=== PATIENT | female | born 1950 | race Caucasian/White ===

== ENCOUNTER 2018-12-17 02:22 | Inpatient (IN) | payer MEDICARE ==
[~2018-12-17] VITALS: Ht 160 cm; Wt 54.9 kg
[2018-12-17] MEDS ORDERED: NITROGLYCERIN OINT 1GM/INCH UDPKT TD ONE (03:00)
[2018-12-17] MEDS ORDERED: ASPIRIN 81MG TABLET PO ONE (03:00)
[2018-12-17 03:15] LABS: BASOPHILS % 0.7 % (0.0-2.0); EOSINOPHILS % 2.1 % (0.0-5.0); HEMATOCRIT. 39.2 % (36.0-48.0); HEMOGLOBIN. 13.5 g/dL (12.0-16.0); MEAN CORPUSCULAR HEMOGLOBIN 30.3 pg (28.0-32.0); MONOCYTES % 7.5 % (2.0-8.0); NEUTROPHILS % 54.7 % (40.0-76.0); PLATELET 241 x1000/uL (130-400); RED BLOOD CELL COUNT 4.45 mill/uL (4.2-5.4); RED CELL DISTRIBUTION WIDTH 13.3 % (11.6-14.6)
[2018-12-17 03:23] LABS: CHLORIDE 109 mEq/L (98-107)
[2018-12-17] MEDS ORDERED: LORAZEPAM 0.5MG TABLET PO PRN (11:00)
[2018-12-17] MEDS ORDERED: NA PHOS,M-B/NA PHOS,DI-BA ENEMA 118ML PR PRN (11:00)
[2018-12-17] MEDS ORDERED: TRAMADOL 50MG TABLET PO PRN (11:00)
[2018-12-17] MEDS ORDERED: CLONIDINE 0.1MG TABLET PO PRN (11:00)
[2018-12-17] MEDS ORDERED: GUAIFENESIN 200MG/10ML SUGAR FREE UDC PO PRN (11:00)
[2018-12-17] MEDS ORDERED: DOCUSATE SODIUM 100MG CAPSULE PO PRN (11:00)
[2018-12-17] MEDS ORDERED: ONDANSETRON HCL 4MG/2ML INJ IV PRN (11:00)
[2018-12-17] MEDS: LOSARTAN POTASSIUM 50 MG TABLET PO SCH (11:00)
[2018-12-17] MEDS ORDERED: MAGNESIUM/ALUMINUM HYDROXIDE/SIMETHICONE 30ML UDC PO PRN (11:00)
[2018-12-17] MEDS ORDERED: IPRATROPIUM/ALBUTEROL 0.5-3(2.5)MG/3ML NEB NEB PRN (11:00)
[2018-12-17] MEDS ORDERED: ACETAMINOPHEN 325MG TABLET PO PRN (11:00)
[2018-12-17] MEDS ORDERED: NITROGLYCERIN 0.4MG TABLET SL SL PRN (11:00)
[2018-12-17] MEDS ORDERED: REGADENOSON 0.4 MG/5 ML IV ONE ×2 (11:30→13:57)
[2018-12-17 12:00] VITALS: BP 119/53
[2018-12-17] MEDS: FAMOTIDINE 20MG TABLET PO SCH (12:00)
[2018-12-17] MEDS: ENOXAPARIN 40MG/0.4ML SYR SUBCUT SCH (12:00)
[2018-12-17 12:11] VITALS: BP 119/53
[2018-12-17] MEDS ORDERED: ESCI10TA54 PO (13:21)
[2018-12-17] MEDS ORDERED: AMLO5TAB88 PO (13:21)
[2018-12-17] MEDS ORDERED: MELA1TAB28 PO (13:21)
[2018-12-17 13:36] LABS: CREATINE KINASE 50 IU/L (26-192)
[2018-12-17 13:37] LABS: CREATINE KINASE MB FRACTION < 1.0 ng/mL (0.5-3.6)
[2018-12-17] MEDS: AMLODIPINE 10MG TABLET PO SCH (14:04)
[2018-12-17 16:00] VITALS: BP 147/63
[2018-12-17 16:52] LABS: CREATINE KINASE 47 IU/L (26-192)
[2018-12-17 16:54] LABS: CREATINE KINASE MB FRACTION < 1.0 ng/mL (0.5-3.6)
[2018-12-17 20:00] VITALS: BP 115/51
[2018-12-17] MEDS ORDERED: ZOLPIDEM TARTRATE 5MG TABLET PO PRN (21:00)
[2018-12-17] MEDS ORDERED: FAMOTIDINE 20MG TABLET PO SCH (21:00)
[2018-12-17] MEDS ORDERED: ATORVASTATIN CALCIUM 10MG TABLET PO SCH (21:00)
[2018-12-18] VITALS: BP 143/73
[2018-12-18 00:08] LABS: CREATINE KINASE 44 IU/L (26-192)
[2018-12-18 00:09] LABS: CREATINE KINASE MB FRACTION < 1.0 ng/mL (0.5-3.6)
[2018-12-18 04:00] VITALS: BP 143/87
[2018-12-18 08:00] VITALS: BP 138/62
[2018-12-18 08:03] LABS: *AMPHETAMINES SCREEN URINE NEGATIVE (NEGATIVE); *BARBITURATES SCREEN URINE NEGATIVE (NEGATIVE); *BENZODIAZEPINES SCREEN URINE NEGATIVE (NEGATIVE); *COCAINE SCREEN URINE NEGATIVE (NEGATIVE); CANNABINOID URINE SCREEN NEGATIVE (NEGATIVE); METHADONE URINE SCREEN NEGATIVE (NEGATIVE); OPIATES URINE SCREEN NEGATIVE (NEGATIVE); PHENCYCLIDINE URINE SCREEN NEGATIVE (NEGATIVE)
[2018-12-18] MEDS ORDERED: ASPIRIN 325MG EC TABLET PO SCH (09:00)
[2018-12-18] MEDS: FAMOTIDINE 20MG TABLET PO SCH (09:00)
[2018-12-18 10:26] VITALS: BP 138/62
[2018-12-18] MEDS: AMLODIPINE 10MG TABLET PO SCH (10:44)
[2018-12-18] MEDS: LOSARTAN POTASSIUM 50 MG TABLET PO SCH (10:45)
[2018-12-18] MEDS: ENOXAPARIN 40MG/0.4ML SYR SUBCUT SCH (10:46)
[2018-12-18 12:00] VITALS: BP 131/61
[2018-12-18 20:00] VITALS: BP 148/97
[2018-12-19] VITALS: BP 125/71
== END 2018-12-18 15:20 | disposition home or self-care (01) | DRG 392 ==
LOC: EDUNIT# 02:22 → ER 02:22 → 6WST 04:46 → EDBEDREQ 04:49 → EDBEDREQTM 04:49 → ENRESERV 09:23 → 6WST 10:00
PROVIDERS: ADMIT Internal Medicine; ATTEND Internal Medicine
DX: K21.9 Gastro-esophageal reflux disease without esophagitis (principal); I10 Essential (primary) hypertension; F41.9 Anxiety disorder, unspecified; F32.9 Major depressive disorder, single episode, unspecified; E78.5 Hyperlipidemia, unspecified; G47.00 Insomnia, unspecified; E78.00 Pure hypercholesterolemia, unspecified
CPT/HCPCS: 36415; 71045; 78452; 78582; 80061; 80305; 82465; 82550; 82553; 83036; 83880; 84484; 93005; 93306; 93970; 99285; A9500; A9558; J1650; J2785

== ENCOUNTER 2019-01-08 06:00 | Emergency (ER) | payer MEDICARE ==
[~2019-01-08] VITALS: Ht 162.6 cm; Wt 54.0 kg
[~2019-01-08 06:00] MED LIST: AMLO5TAB88 PO; ESCI10TA54 PO; MELA1TAB28 PO
[2019-01-08 07:12] LABS: BASOPHILS % 0.4 % (0.0-2.0); EOSINOPHILS % 1.6 % (0.0-5.0); HEMOGLOBIN. 14.3 g/dL (12.0-16.0); LYMPHOCYTES % 28.1 % (20.0-50.0); MEAN CORPUSCULAR HEMOGLOBIN 29.9 pg (28.0-32.0); MEAN CORPUSCULAR VOLUME 89.6 fL (81.0-99.0); MEAN PLATELET VOLUME 9.2 fl (7.4-10.4); MONOCYTES % 7.4 % (2.0-8.0); NEUTROPHILS % 62.5 % (40.0-76.0); PLATELET 230 x1000/uL (130-400); RED CELL DISTRIBUTION WIDTH 13.3 % (11.6-14.6)
[2019-01-08 07:17] LABS: CHLORIDE 108 mEq/L (98-107)
[2019-01-08] MEDS ORDERED: LOSARTAN POTASSIUM 50 MG TABLET PO NR (10:15)
[2019-01-08] MEDS ORDERED: ACETAMINOPHEN 325MG TABLET PO NR (10:15)
[2019-01-08] MEDS ORDERED: ACETAMINOPHEN 325MG TABLET PO PRN (11:00)
[2019-01-08] MEDS ORDERED: PANTOPRAZOLE SODIUM 40 MG/VIAL IV SCH (11:00)
[2019-01-08] MEDS ORDERED: MORPHINE SULFATE 2 MG/ML CPJ (NOT FOR IM USE) IV PRN (11:00)
[2019-01-08] MEDS ORDERED: ONDANSETRON HCL 4MG/2ML INJ IV PRN (11:00)
[2019-01-08] MEDS ORDERED: CLONIDINE 0.1MG TABLET PO PRN (11:00)
[2019-01-08] MEDS ORDERED: MAGNESIUM/ALUMINUM HYDROXIDE/SIMETHICONE 30ML UDC PO PRN (11:00)
[2019-01-08] MEDS ORDERED: HYDROCODONE/ACETAMINOPHEN 5/325MG TABLET PO PRN (11:00)
[2019-01-08] MEDS ORDERED: ENOXAPARIN 40MG/0.4ML SYR SUBCUT SCH (11:00)
[2019-01-08] MEDS ORDERED: AMLODIPINE 10MG TABLET PO SCH (11:00)
[2019-01-08] MEDS ORDERED: DOCUSATE SODIUM 100MG CAPSULE PO PRN (11:00)
[2019-01-08] MEDS ORDERED: CITALOPRAM HYDROBROMIDE 10MG TABLET PO SCH (13:45)
[2019-01-08 15:16] VITALS: BP 141/74
[2019-01-09] MEDS ORDERED: ASPIRIN 81MG EC TABLET PO SCH (09:00)
[2019-01-09] MEDS ORDERED: LOSARTAN POTASSIUM 50 MG TABLET PO SCH (09:00)
== END 2019-01-08 15:20 | disposition home or self-care (01) ==
LOC: ER 06:00 → EDBEDREQ 08:11 → SUPCPDRO 10:46 → CANBEDREQ 15:11 → ER 15:20
DX: R07.9 Chest pain, unspecified (principal); I10 Essential (primary) hypertension; F32.9 Major depressive disorder, single episode, unspecified; Z79.899 Other long term (current) drug therapy
CPT/HCPCS: 36415; 71045; 83880; 84484; 93005; 93970; 99284

== ENCOUNTER → 2024-07-22 | Day surgery (SDC) | payer MEDICARE, MEDICAID ==
[~2024-07-22] VITALS: Ht 160 cm; Wt 51.3 kg
[~2024-07-22] MED LIST changes: +ALEN70TA79 PO; +AMLO10TA80 PO; -AMLO5TAB88 PO; +ATOR10TA69 PO; +BALANCED SALT IRRIG SOLN COMB1 500ML OP SCH; +CYCLOPENTOLATE HCL 1% OPHTH DROPS 2ML LEFTEYE NR; -ESCI10TA54 PO; +HYALURONATE SODIUM 10MG/ML 0.55ML SYRINGE IO ONE; +LACTATED RINGERS 1,000 ML IV SCH; -MELA1TAB28 PO; +PHENYLEPHRINE HCL 10% OPHTH DROPS 5ML LEFTEYE NR; +TROPICAMIDE 1% OPHTH DROPS 15ML LEFTEYE NR
== END | disposition home or self-care (01) ==
LOC: OR 08:08
PROVIDERS: ATTEND Ophthalmology
DX: H25.89 Other age-related cataract (principal); Z53.8 Procedure and treatment not carried out for other reasons; Z79.899 Other long term (current) drug therapy; Z98.890 Other specified postprocedural states
CPT/HCPCS: J3490

== ENCOUNTER → 2024-08-22 | Day surgery (SDC) | payer MEDICARE, MEDICAID ==
[~2024-08-22] VITALS: Ht 160 cm; Wt 1.0 kg
[~2024-08-22] MED LIST changes: +BALANCED SALT IRRIG SOLN 15ML ONE; +CHOL100022 PO; +CIPROFLOXACIN 0.3% OPHTH SOLN 2.5ML ONE; -CYCLOPENTOLATE HCL 1% OPHTH DROPS 2ML LEFTEYE NR; +CYCLOPENTOLATE HCL 1% OPHTH DROPS 2ML LEFTEYE ONE; +FENTANYL CITRATE/PF 50MCG/ML 2ML VIAL ONE; +HYDROMORPHONE HCL/PF 1MG/ML INJ IV PRN; -LACTATED RINGERS 1,000 ML IV SCH; +LIDOCAINE HCL 2% 5ML SYRINGE IV ONE; +MIDAZOLAM HCL 2 MG/2 ML VIAL ONE; +ONDANSETRON HCL 4MG/2ML INJ IV PRN; -PHENYLEPHRINE HCL 10% OPHTH DROPS 5ML LEFTEYE NR; +PHENYLEPHRINE HCL 10% OPHTH DROPS 5ML LEFTEYE ONE; +PREDNISOLONE ACETATE 1% OPHTH DROPS 5ML ONE; +PROPOFOL 200MG/20ML VIAL IV ONE; +SODIUM CHLORIDE 0.9% 1,000 ML IV SCH; +TETRACAINE 0.5% OPHTH DROPS 4ML ONE; +TRIAMCINOLONE ACETONIDE 40MG/ML 1ML VIAL ONE; -TROPICAMIDE 1% OPHTH DROPS 15ML LEFTEYE NR; +TROPICAMIDE 1% OPHTH DROPS 15ML LEFTEYE ONE; +TRYPAN BLUE 0.5 ML DISP.SYRIN IO ONE
== END | disposition home or self-care (01) ==
LOC: OR 10:23
PROVIDERS: ATTEND Ophthalmology
DX: H25.89 Other age-related cataract (principal); H11.002 Unspecified pterygium of left eye; I10 Essential (primary) hypertension; E78.5 Hyperlipidemia, unspecified; K21.9 Gastro-esophageal reflux disease without esophagitis; M81.0 Age-related osteoporosis without current pathological fracture; Z79.899 Other long term (current) drug therapy; Z98.890 Other specified postprocedural states
CPT/HCPCS: 66984; 65420; 82962; Q9957; J3010; J2003; J2250; J2704; J3301; J3490; V2632; A4217